=== PATIENT | female | born 1990 | race Caucasian/White ===

== ENCOUNTER 2019-06-19 12:44 | Emergency (ER) | payer SELFPAY ==
[2019-06-19 12:59] VITALS: BP 139/79; PULSE 80; TEMP 98; BMI 27.4
--- NOTE | 2019-06-19 13:38 | PDOC ---
History of Present Illness - General Chief Complaint: Alcohol intoxication Stated Complaint: INTOX Time Seen by Provider: 06/19/19 12:47 - History of Present Illness Initial Comments: 06/19/19 13:36 28 F with no PMH presents to ED after being found [place] the [place] a [place]. Pt is intoxicated in ED and admits to drinking ETOH. Denies any coingestions. Denies any SI/HI/AVH. Denies any falls/trauma. No complaints at this time other than wanting to leave. Past History - Past Medical History Allergies/Adverse Reactions: Allergies Allergy/AdvReac Type Severity Reaction Status Date / Time No Allergy Information Allergy Verified 06/19/19 13:00 Available Home Medications: Ambulatory Orders Unobtainable 06/19/19 COPD: No - Psycho Social/Smoking Cessation Hx Smoking History: Never smoked Have you smoked in the past 12 months: No Information on smoking cessation initiated: No Hx Alcohol Use: Yes Drug/Substance Use Hx: No Review of Systems - Review of Systems Comments:: 06/19/19 13:37 "GENERAL/CONSTITUTIONAL: No fever or chills. No weakness. HEAD, EYES, EARS, NOSE AND THROAT: No change in vision. No ear pain or discharge. No sore throat. CARDIOVASCULAR: No chest pain, no shortness of breath, no loss of consciousness RESPIRATORY: No cough, wheezing, or hemoptysis. GASTROINTESTINAL: No nausea, vomiting, diarrhea or constipation. GENITOURINARY: No dysuria, frequency, or change in urination. MUSCULOSKELETAL: No joint or muscle swelling or pain. No neck or back pain. SKIN: No rash NEUROLOGIC: No vertigo, no change in strength/sensation. ENDOCRINE: No increased thirst. No abnormal weight change. HEMATOLOGIC/LYMPHATIC: No anemia, easy bleeding, or history of blood clots. ALLERGIC/IMMUNOLOGIC: No hives or skin allergy. *Physical Exam - Vital Signs Last Vital Signs Temp Pulse Resp BP Pulse Ox 98 F 80 20 139/79 100 06/19/19 12:45 06/19/19 12:45 06/19/19 12:45 06/19/19 12:45 06/19/19 12:45 - Physical Exam Comments: 06/19/19 13:37 "GENERAL: Awake, intoxicated, in no acute distress. HEAD: No signs of trauma EYES: PERRLA, EOMI, sclera anicteric, conjunctiva clear ENT: Auricles normal inspection, hearing grossly normal, nares patent, oropharynx clear without exudates. Moist mucosa NECK: Nontender, no stepoffs, Normal ROM, supple, no lymphadenopathy, JVD, or masses LUNGS: Breath sounds equal, clear to auscultation bilaterally. No wheezes, and no crackles HEART: Regular rate and rhythm, normal S1 and S2, no murmurs, rubs or gallops ABDOMEN: Soft, nontender, normoactive bowel sounds. No guarding, no rebound. No masses EXTREMITIES: Normal range of motion, no edema. No clubbing or cyanosis. No cords, erythema, or tenderness NEUROLOGICAL: Cranial nerves II through XII intact. 5/5 strength and sensation in all extremities, Normal speech, normal gait, normal cerebellar function SKIN: Warm, Dry, normal turgor, no rashes or lesions noted. Medical Decision Making - Medical Decision Making 06/19/19 13:37 28 F brought to ED for intoxication. Admits to ETOH use with no other coingestions. No clinical signs of traumatic injury. - Reassess when sober 06/19/19 15:50 Pt reassessed - now awake, alert, ambulatory in ED with steady gait. Denies any complaints. Denies any injuries. Admits to ETOH use. Denies SI/HI/AVH. Pt now clinically sober. Pt is well appearing, with normal vitals. Clinically stable for DC at this time. I discussed the physical exam findings, ancillary test results and final diagnoses with the patient. I answered all of the patient's questions. The patient was satisfied with the care received and felt comfortable with the discharge plan and treatment plan. The patient agrees to follow up with the primary care physician within 24-72 hours. Discharge - Discharge Information Problems reviewed: Yes Clinical Impression/Diagnosis: Alcohol intoxication Disposition: HOME - Follow up/Referral - Patient Discharge Instructions Patient Printed Discharge Instructions: DI for Alcohol Abuse Additional Instructions: Refrain from excessive alcohol use. Follow up with your primary doctor within 48 hours. Return to the ER if you experience any new or concerning symptoms. - Post Discharge Activity
== END 2019-06-19 15:53 | disposition home or self-care (01) ==
LOC: FER 12:44
DX: F10.129 Alcohol abuse with intoxication, unspecified (principal)
CPT/HCPCS: 99282-25